=== PATIENT | female | born 1940 | race Caucasian/White ===

== ENCOUNTER 2016-09-30 13:50 | Inpatient (IN) | payer OTHER ==
--- NOTE | 2016-09-30 14:16 | CPEKG ---
Heart Rate: 66 RR Interval: 909 P-R Interval: 175 QRSD Interval: 82 QT Interval: 392 QTC Interval: 411 P [place]: -25 QRS [place]: 33 T Wave [place]: 21 EKG Severity - ABNORMAL ECG - EKG Impression: SINUS RHYTHM EKG Impression: ANTERIOR INFARCT, OLD Electronically Signed By: Kiran Reeder 30-Sep-2016 14:58:52
[2016-09-30 14:37] LABS: % IMMATURE GRANULYOCYTES 0.3 % (0.0-1.1); ABSOLUTE IMMATURE GRANULOCYTES 0.02 10^3/uL (0.00-0.10); ADD DIFF? NO; ADD MORPH? NO; ADD SCAN? NO; ATYPICAL LYMPHOCYTE FLAG 0 (0-99); FRAGMENT RBC FLAG 0 (0-99); HEMATOCRIT 38.9 % (38.0-47.0); HEMOGLOBIN 13.3 g/dL (12.6-16.3); LEFT SHIFT FLG 0 (0-99); LIPEMIA HEMOLYSIS FLAG 90 (0-99); MEAN CELL HEMOGLOBIN 32.7 pg (27.9-34.1); MEAN CELL HEMOGLOBIN CONCENTR. 34.2 g/dL (32.4-36.7); MEAN CELL VOLUME 95.6 fL (81.5-99.8); MEAN PLATELET VOLUME 10.4 fL (8.7-11.7); PLATELET CLUMPS FLAG 0 (0-99); PLATELET COUNT 261 10^3/uL (150-400); RED BLOOD CELL COUNT 4.07 10^6/uL (4.18-5.33); RED CELL DISTRIBUTION WIDTH 13.5 % (11.5-15.2)
[2016-09-30 14:44] LABS: ALANINE AMINOTRANSFERASE 34 IU/L (9-52); ALBUMIN 3.9 g/dL (3.5-5.0); ALKALINE PHOSPHATASE 79 IU/L (38-126); ANION GAP 13 mEq/L (8-16); ASPARTATE AMINOTRANSFERASE 24 IU/L (14-46); BILIRUBIN,TOTAL 0.4 mg/dL (0.1-1.4); CALCIUM 9.1 mg/dL (8.5-10.4); CARBON DIOXIDE 22 mEq/l (22-31); CHLORIDE 104 mEq/L (97-110); CREATININE 0.8 mg/dL (0.6-1.0); GLOMERULAR FILTRATION RATE > 60; GLUCOSE 86 mg/dL (70-100); POTASSIUM 4.2 mEq/L (3.5-5.2); SODIUM 139 mEq/L (134-144); TOTAL PROTEIN 7.1 g/dL (6.3-8.2)
--- NOTE | 2016-09-30 14:52 | EDPHY ---
H & P Chief Complaint Nursing Narrative: intermittent chest discomfort described as " indigestion" with l shoulder pain that radiates to neck and sob x 1 week Time Seen by Provider: 09/30/16 14:09 HPI/ROS: Chief Complaint: Chest pain HPI: 76-year-old woman with past medical history of coronary artery disease, CVA and TIA is presenting complaining of "indigestion" for the last week and a half. Patient states she has been having daily discomfort in her chest which is radiating to her left arm and to her left neck. She states this does come and go and goes away with " a large amount" of antacids. It does feel somewhat similar to when she had her prior AL. Has not discussed this with her knitter hand, Dr. Tijerina, or her primary care physician, Dr. Lulu Rincon. It is waxing waning. At worst it is a 4/10. If your Urgent Care today it is 0/10. She has had some nausea with no vomiting. No numbness or weakness. Has had some dyspnea on exertion. ROS: 10 point Review of Systems is negative except as noted in the HPI. PMH: Coronary artery disease status post CABG, CVA x1, TIA x1, breast cancer status post lumpectomy, lymphoma Medications: Carvedilol, digoxin, Lipitor, omeprazole, aspirin, Wellbutrin, ramipril, Klonopin Allergies: Sulfa Social History: No smoking, no alcohol, no recreational drug use Family History: non-contributory Physical Exam: Gen: Awake, Alert, No Distress HEENT: Nose: no rhinorrhea Eyes: PERRLA, EOMI Mouth: Moist mucosa Neck: Supple, no JVD Chest: nontender, lungs clear to auscultation Heart: S1, S2 normal, no murmur Abd: Soft, non-tender, no guarding Back: no CVA tenderness, no midline tenderness Ext: no edema, non-tender Skin: no rash Neuro: CN II-XII intact, Sensation grossly intact, Strength 5/5 in bilateral upper and lower extremities - Personal History Tetanus Vaccine Date: < 10 - Medical/Surgical History Hx Asthma: No Hx Chronic Respiratory Disease: No Hx Diabetes: No Hx Cardiac Disease: Yes Hx Renal Disease: No Hx Cirrhosis: No Hx Alcoholism: No Hx HIV/AIDS: No Hx Splenectomy or Spleen Trauma: No Other PMH: cardiac issues - Social History Smoking Status: Never smoked Constitutional: Initial Vital Signs Temperature (C) 37.1 C 09/30/16 14:10 Heart Rate 70 09/30/16 14:10 Respiratory Rate 18 09/30/16 14:10 Blood Pressure 145/83 H 09/30/16 14:10 O2 Sat (%) 92 09/30/16 14:10 O2 Delivery Mode Room Air Allergies/Adverse Reactions: Sulfa (Sulfonamide Antibiotics) Allergy (Intermediate, Verified 11/29/13 12:10) Home Medications: Medication Instructions Recorded Aspirin [Aspirin 81mg (OTC)] 81 mg PO DAILY 10/16/11 Carvedilol [Coreg (RX)] 3.125 mg PO BIDMEAL 10/16/11 Ramipril [Altace 2.5mg (RX)] 2.5 mg PO HS 10/16/11 clonazePAM [Klonopin (RX)] 0.5 mg PO HS 10/16/11 Atorvastatin Calcium [Lipitor 40 40 mg PO DAILY 05/14/13 mg (RX)] Bupropion HCl [Budeprion Sr] 300 mg PO HS 05/14/13 Digoxin [Lanoxin] 0.125 mg PO DAILY 05/14/13 Melatonin [Melatonin 3 MG (OTC)] 3 mg PO HS 05/14/13 Omeprazole [Prilosec 20 mg] 20 mg PO DAILY PRN 05/14/13 Medical Decision Making - Diagnostics EKG Interpretation: ECG: Time 2:14 p.m., sinus rhythm with a rate of 66, normal axis, Q-waves in V1 through V3 consistent with an old anterior infarct, no acute ST or T-wave changes. Impression: Old infarct, no acute Imaging: Chest x-ray: Negative per Dr. Dexter. ED Course/Re-evaluation: 76-year-old with multiple risk factors for coronary disease with a history of CABG in the past. Patient has no acute changes on ECG today troponin is 0. However given her significant risk factors in inability to recognize the possibility of this as cardiac she will require admit hospital admission for further evaluation. I have discussed with Dr. Cormier, hospitalist. She will except the patient to the PCU for further evaluation. - Data Points Laboratory Results: Laboratory Results 09/30/16 14:30 09/30/16 14:30 09/30/16 09/30/16 14:30 14:30 WBC 6.73 10^3/uL 10^3/uL (3.80-9.50) RBC 4.07 10^6/uL L 10^6/uL (4.18-5.33) Hgb 13.3 g/dL g/dL (12.6-16.3) Hct 38.9 % % (38.0-47.0) MCV 95.6 fL fL (81.5-99.8) MCH 32.7 pg pg (27.9-34.1) MCHC 34.2 g/dL g/dL (32.4-36.7) RDW 13.5 % % (11.5-15.2) Plt Count 261 10^3/uL 10^3/uL (150-400) MPV 10.4 fL fL (8.7-11.7) Neut % (Auto) 60.3 % % (39.3-74.2) Lymph % (Auto) 24.4 % % (15.0-45.0) [place] % (Auto) 12.2 % % (4.5-13.0) Eos % (Auto) 2.4 % % (0.6-7.6) Baso % (Auto) 0.4 % % (0.3-1.7) Nucleat RBC Rel Count 0.0 % % (0.0-0.2) Absolute Neuts (auto) 4.06 10^3/uL 10^3/uL (1.70-6.50) Absolute Lymphs (auto) 1.64 10^3/uL 10^3/uL (1.00-3.00) Absolute Monos (auto) 0.82 10^3/uL H 10^3/uL (0.30-0.80) Absolute Eos (auto) 0.16 10^3/uL 10^3/uL (0.03-0.40) Absolute Basos (auto) 0.03 10^3/uL 10^3/uL (0.02-0.10) Absolute Nucleated RBC 0.00 10^3/uL 10^3/uL (0-0.01) Immature Gran % 0.3 % % (0.0-1.1) Immature Gran # 0.02 10^3/uL 10^3/uL (0.00-0.10) Sodium 139 mEq/L mEq/L (134-144) Potassium 4.2 mEq/L mEq/L (3.5-5.2) Chloride 104 mEq/L mEq/L (97-110) Carbon Dioxide 22 mEq/l mEq/l (22-31) Anion Gap 13 mEq/L mEq/L (8-16) BUN 13 mg/dL mg/dL (7-23) Creatinine 0.8 mg/dL mg/dL (0.6-1.0) Estimated GFR > 60 Glucose 86 mg/dL mg/dL (70-100) Calcium 9.1 mg/dL mg/dL (8.5-10.4) Total Bilirubin 0.4 mg/dL mg/dL (0.1-1.4) AST 24 IU/L IU/L (14-46) ALT 34 IU/L IU/L (9-52) Alkaline Phosphatase 79 IU/L IU/L (38-126) Troponin I < 0.012 ng/mL ng/mL (0-0.034) Total Protein 7.1 g/dL g/dL (6.3-8.2) Albumin 3.9 g/dL g/dL (3.5-5.0) Departure - Departure Disposition: [facility] Inpatient Acute Clinical Impression: Chest pain Condition: Fair Referrals: Lulu Henning MD [Primary Care Provider] - As per Instructions
[2016-09-30 14:59] LABS: TROPONIN I < 0.012 ng/mL (0-0.034)
[2016-09-30] MEDS ORDERED: ONDANSETRON DISINTEGRATING 4 MG TAB PO PRN (18:04)
[2016-09-30] MEDS ORDERED: ACETAMINOPHEN 325 MG TAB PO PRN (18:04)
[2016-09-30] MEDS ORDERED: ONDANSETRON 4 MG/2 ML VIAL IVP PRN (18:04)
[2016-09-30] MEDS ORDERED: HEPARIN 5,000 UNIT/0.5 ML SYR SC ONE (19:00)
[2016-09-30] MEDS: clonazePAM 0.5 MG TAB PO SCH (21:32)
[2016-09-30] MEDS: MELATONIN 3 MG TAB PO SCH (21:32)
[2016-09-30] MEDS: CARVEDILOL 6.25 MG TAB PO SCH (21:33)
[2016-09-30] MEDS: ASPIRIN EC 81 MG TAB PO SCH (21:34)
[2016-09-30] MEDS: ATORVASTATIN CALCIUM 40 MG TAB PO SCH (21:34)
[2016-09-30] MEDS: RAMIPRIL 2.5 MG CAP PO SCH (21:34)
[2016-10-01] MEDS: NITROGLYCERIN 2% 1 GM PACKET TP SCH ×5 (02:40→23:45)
[2016-10-01] MEDS: ENOXAPARIN 40 MG/0.4 ML SYR SC SCH (08:38)
[2016-10-01] MEDS: MULTIVITAMINS 1 EACH TAB PO SCH (08:39)
[2016-10-01] MEDS: ESCITALOPRAM OXALATE 10 MG TAB PO SCH (08:40)
[2016-10-01] MEDS: ASPIRIN EC 81 MG TAB PO SCH (08:40)
[2016-10-01] MEDS: ATORVASTATIN CALCIUM 40 MG TAB PO SCH (08:40)
[2016-10-01] MEDS ORDERED: PANTOPRAZOLE SODIUM 40 MG TAB PO PRN (09:00)
[2016-10-01] MEDS ORDERED: DIGOXIN 125 MCG TAB PO SCH (09:00)
--- NOTE | 2016-10-01 09:00 | CPEKG ---
Heart Rate: 66 RR Interval: 909 P-R Interval: 212 QRSD Interval: 84 QT Interval: 408 QTC Interval: 428 P [place]: 65 QRS [place]: 62 T Wave [place]: 55 EKG Severity - ABNORMAL ECG - EKG Impression: SINUS RHYTHM EKG Impression: CONSIDER ANTEROSEPTAL INFARCT EKG Impression: No significant change from September 30, 2016 Electronically Signed By: Marco Johnson 01-Oct-2016 12:54:04
[2016-10-01] MEDS ORDERED: ACETAMINOPHEN 325 MG TAB PO PRN (09:33)
[2016-10-01] MEDS ORDERED: ASPIRIN EC 325 MG TAB PO ONE (09:33)
[2016-10-01] MEDS ORDERED: NITROGLYCERIN 0.4 MG BTL SL PRN (09:33)
[2016-10-01] MEDS ORDERED: TEMAZEPAM 15 MG CAP PO PRN (09:33)
[2016-10-01] MEDS ORDERED: diphenhydrAMINE 25 MG CAP PO ONE (09:33)
[2016-10-01] MEDS ORDERED: DIAZEPAM 5 MG TAB PO ONE (09:33)
--- NOTE | 2016-10-01 09:51 | GCON ---
[f rep st] CONSULTATION CARDIOLOGY CONSULTATION DATE OF CONSULTATION: 10/01/2016 CHIEF COMPLAINT: Intermittent chest and shoulder pain. HISTORY OF PRESENT ILLNESS: This is a very pleasant 76-year-old female who is followed by Dr. Justo blackmon in our office. Her cardiac history dates back to 1993 when she had a cardiac arrest and underwent apparently 2-vessel coronary bypass grafting by Dr. Jonathan Beck. She was being seen by a cardio logist in [place]. Apparently had a "normal exercise stress test within the last year." For the las t 2 weeks, however, she has been having increasing indigestion, which radiates to her neck and left shoulder pain. Her initial presentation of coronary artery disease was thought to be neck and shoul brad pain as well. She is active. She is under quite a bit of stress at her house. She has been ta maria t antacids with some relief. She denies any active GI blood loss. She was admitted last night a nd has had EKGs, which were nondiagnostic, and normal troponins. She is pain-free and doing well th is morning. I had a long talk with her and her about her options of cardiac catheterization versus nuclear stress testing. We went through the pros and cons. At this point, she has agreed t o cardiac catheterization. She had no prior issues with her cardiac catheterization, such as allerg ies or other issues. She does understand that this will be the test that will give us the most defi nitive information, and if need be, stenting can be done at the same time. She is comfortable and a greeable to that. PAST MEDICAL HISTORY: Coronary artery disease, history of TIAs, status post breast cancer and lumpe ctomy. MEDICATIONS: Include carvedilol, digoxin, Lipitor, omeprazole, aspirin, Wellbutrin, ramipril, and K lonopin. ALLERGIES: Sulfa. SOCIAL HISTORY: No alcohol, no cigarettes. She does have quite a bit of stress with caring for a f josé luis child. EXAM: VITAL SIGNS: Blood pressure is 100/70, with a heart rate of 70. GENERAL: She is a middle-ag ed, elderly female who is comfortable lying in bed. MOUTH: Oropharynx was moist. BACK, CV, CHEST: All without palpable tenderness. LUNGS: Clear to auscultation. CARDIOVASCULAR: Regular rate an d rhythm, without murmurs, gallops, or rub. ABDOMEN: Soft, nontender. Normoactive bowel sounds. MUSCULOSKELETAL: Without cyanosis, clubbing, or edema. LABS: Potassium 4.2, creatinine 0.8. Troponin is normal. White count 6.7, hemoglobin 13. EKG josy ws a normal sinus rhythm, without acute ST-T wave changes. ASSESSMENT: 1. Two-week history of increasing chest discomfort with radiation to the neck and jaw. This very w ell could be GI; however, she has significant cardiac history in the past, including cardiac arrest. She may have had a normal treadmill within the last year, but these symptoms are new. She is hemo dynamically stable, with negative EKG and enzymes and a normal exam today. She has agreed to cardia c catheterization intervention if necessary. This will be done this morning. Hopefully, if this sh ows no issues, she could be discharged later today for GI outpatient followup. If she needs a stent , she has agreed to this. Her , who is in the exam room, was spoken to as well, and he agree s. In reviewing her meds, she has been on digitalis for quite some time of unknown reasons, and I m ay very well stop that drug as well. 2. Gastroesophageal reflux disease. No active gastrointestinal bleeding. 3. Life stressors. Could be a contributing factor. Case discussed with Dr. Mooney. /[id number]/MODL
[2016-10-01] MEDS ORDERED: LIDOCAINE 1% 30 ML SDV ONE (10:45)
[2016-10-01] MEDS ORDERED: fentaNYL 100 MCG/2 ML INJ ONE (10:45)
[2016-10-01] MEDS ORDERED: MIDAZOLAM 2 MG/2 ML VIAL ONE (10:45)
[2016-10-01] MEDS ORDERED: CLOPIDOGREL BISULFATE 75 MG TAB ONE (12:10)
[2016-10-01] MEDS ORDERED: ONDANSETRON 4 MG/2 ML VIAL IVP PRN (12:28)
[2016-10-01] MEDS ORDERED: CLOPIDOGREL BISULFATE 75 MG TAB PO ONE (12:28)
[2016-10-01] MEDS ORDERED: ATROPINE SULFATE 1 MG/10 ML SYR IVP PRN (12:28)
--- NOTE | 2016-10-01 12:32 | PDCTREPORT ---
Cardiothoracic Procedure Rpt Cardiothoracic Procedure Report: Procedure: PCI stenting of the obtuse marginal branch. After reviewing diagnostic angiograms by my partner Dr. Jose M Simms it was elected to proceed with PCI stenting of the obtuse marginal branch. Patient was anticoagulated. Therapeutic ACT was confirmed. A 6 [place] EBU 3.75 guiding catheter was used to intubate the left main coronary artery. A 0.014 cm SAmurai wire was used to cross the obtuse marginal stenosis. It was primarily stented with a 2.25 x 12 mm synergy stent. Repeat angiogram showed RUPALI grade 3 flow. Successful PCI and stenting of the obtuse marginal branch. Patient Problems: Problems Problem Status Onset TIA (transient ischemic attack) Acute Chest pain Acute
--- NOTE | 2016-10-01 13:50 | CPEKG ---
Heart Rate: 63 RR Interval: 952 P-R Interval: 248 QRSD Interval: 82 QT Interval: 404 QTC Interval: 414 P [place]: 87 QRS [place]: 55 T Wave [place]: 25 EKG Severity - ABNORMAL ECG - EKG Impression: SINUS RHYTHM EKG Impression: FIRST DEGREE AV BLOCK EKG Impression: LOW VOLTAGE THROUGHOUT EKG Impression: CONSIDER ANTEROSEPTAL INFARCT EKG Impression: No significant change from October 01, 2016, 8:59 Electronically Signed By: Marco Johnson 01-Oct-2016 16:42:24
--- NOTE | 2016-10-01 16:17 | PDGENHP ---
History and Physical History and Physical: HISTORY AND PHYSICAL CC: Chest pain HISTORY: This patient with a history of bypass surgery in 1993 comes in complaining of anginal symptoms. She states that over the last 10 days she has had frequent episodes of a squeezing discomfort in the substernal area radiating up to the left neck and shoulder. She describes this as an indigestion. This is the same location and quality of pain that she recalls from 1993 and it sounds very much like description of her symptoms in her chart from that time. She does not notice that exertion eating position or anything else in particular is bringing on these episodes. The episodes are lasting 5-10 minutes and occurring at least once a day. There is some nausea and mild dyspnea that goes with that. Otherwise she does not have any new exertional dyspnea, orthopnea, palpitations, fever. She does notice that her calfs are both a bit sore. She is taking her cholesterol treatment, she does not smoke, she has not traveled. She is quite sedentary though. 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 Apparently she has an adopted 14-year-old son who has run from home and apparently is making some kind of suicidal threats recently MEDICATIONS: The patient's home medication list has been reconciled by our clinical pharmacist in the EMR. I have reviewed the list and ordered appropriate medicines. PHYSICAL EXAMINATION: Vital Signs: Stable without fever Allergist/Immunologist:Sinus Examination: General: alert, oriented, good mentation, relaxed Skin: warm, dry, good color, no rash HEENT: normal Neck: no mass or jvd Resps: relaxed Lungs: clear breath sounds Heart: regular, no murmur Abdomen: soft, nondistended, nontender, +BS, no mass Upper Extremities: normal Lower Extremities: no edema, warm No Bleeding or bruising Neurologic: normal speech/language, normal ampoule filler and sealer, no focal weakness IV site: looks normal LABORATORY DATA: 1st troponin normal otherwise unremarkable 12 LEAD EKG, MY PERSONAL READING OF THE TRACING: Sinus rhythm with no acute ischemic abnormalities RADIOLOGY STUDIES: My personal interpretation: Status post mastectomy right otherwise unremarkable ASSESSMENT: -UNSTABLE ANGINA PECTORALIS IN A PATIENT WITH BYPASS SURGERY AND CARDIAC ARREST IN 1993, HISTORY OF RADIATION FOR BREAST CANCER -BILATERAL CALF DISCOMFORT WITH UNREMARKABLE EXAMINATION PLANS: -admit to clinical research monitor unit, NPO after midnight -continue her usual medicines -will give some nitroglycerin overnight to keep things quiet -coronary angiography in the morning -Will hold her digoxin at this point as there does not appear to be any reason for her to be taking that, and Dr. Oswald is recommending that we discontinue that as she goes home -Doppler ultrasound of both legs I have reviewed the patient's case in detail with Dr. amrit Oswald and Jose M Simms I have reviewed the patient's past medical records as part of this assessment, including previous hospital records from this hospital and clinic records
--- NOTE | 2016-10-01 16:22 | HOSPPROG ---
Hospitalist Progress Note Assessment/Plan: DIAGNOSES: -unstable angina pectoralis -coronary artery stenosis at obtuse marginal branch, now SPECT status post stent which is her 1st stent -history of bypass surgery 1993, had presented with chest pain and cardiac arrest at that time -no evidence of DVT on sono PLANS: -monitor overnight for stability; therefore will need to change to inpt -Plavix will be added -anticipate likely discharge tomorrow SUBJECTIVE: Seen after angiography and stent placement Feels well with no pain at access site, no angina, no shortness of breath or nausea OBJECTIVE Vitals reviewed: stable without fever Box Toe Maker, my review: sinus rhythm Exam: alert oriented skin warm dry color ok resps not labored lungs clear BSs heart regular abd soft nondistended nontender, bowel sounds present limbs warm, no edema iv site ok Objective: Vital Signs Temp Pulse Resp BP Pulse Ox 37.0 C 68 13 158/97 H 94 10/01/16 15:49 10/01/16 15:49 10/01/16 15:49 10/01/16 15:49 10/01/16 15:49 09/30/16 10/01/16 10/02/16 06:59 06:59 06:59 Intake Total 300 Balance 300 ICD10 Worksheet Patient Problems: Problems Problem Status Onset Chest pain Acute TIA (transient ischemic attack) Acute
[2016-10-01] MEDS ORDERED: amLODIPine BESYLATE 5 MG TAB PO PRN (17:13)
[2016-10-01] MEDS: RAMIPRIL 2.5 MG CAP PO SCH (20:25)
[2016-10-01] MEDS: MELATONIN 3 MG TAB PO SCH (20:25)
[2016-10-01] MEDS: clonazePAM 0.5 MG TAB PO SCH (20:25)
[2016-10-02 03:51] VITALS: RESP 16
[2016-10-02 05:03] LABS: % IMMATURE GRANULYOCYTES 0.4 % (0.0-1.1); ABSOLUTE IMMATURE GRANULOCYTES 0.04 10^3/uL (0.00-0.10); ADD DIFF? NO; ADD MORPH? NO; ADD SCAN? NO; ATYPICAL LYMPHOCYTE FLAG 0 (0-99); FRAGMENT RBC FLAG 0 (0-99); HEMATOCRIT 36.6 % (38.0-47.0); HEMOGLOBIN 12.4 g/dL (12.6-16.3); LEFT SHIFT FLG 0 (0-99); LIPEMIA HEMOLYSIS FLAG 90 (0-99); MEAN CELL HEMOGLOBIN 32.5 pg (27.9-34.1); MEAN CELL HEMOGLOBIN CONCENTR. 33.9 g/dL (32.4-36.7); MEAN CELL VOLUME 96.1 fL (81.5-99.8); MEAN PLATELET VOLUME 10.6 fL (8.7-11.7); PLATELET CLUMPS FLAG 0 (0-99); PLATELET COUNT 219 10^3/uL (150-400); RED BLOOD CELL COUNT 3.81 10^6/uL (4.18-5.33); RED CELL DISTRIBUTION WIDTH 13.2 % (11.5-15.2)
[2016-10-02] MEDS: NITROGLYCERIN 2% 1 GM PACKET TP SCH (05:16)
[2016-10-02 05:33] LABS: ANION GAP 11 mEq/L (8-16); ASPARTATE AMINOTRANSFERASE 24 IU/L (14-46); BILIRUBIN,TOTAL 0.7 mg/dL (0.1-1.4); CARBON DIOXIDE 20 mEq/l (22-31); CHLORIDE 106 mEq/L (97-110); CREATININE 0.8 mg/dL (0.6-1.0); GLOMERULAR FILTRATION RATE > 60; GLUCOSE 105 mg/dL (70-100); LACTATE DEHYDROGENASE 477 IU/L (313-618); MAGNESIUM 2.1 mg/dL (1.6-2.3); POTASSIUM 4.3 mEq/L (3.5-5.2); SODIUM 137 mEq/L (134-144)
[2016-10-02 07:11] VITALS: BP 120/71; PULSE 71; TEMP 95.9; O2SAT 95
--- NOTE | 2016-10-02 07:56 | CPEKG ---
Heart Rate: 71 RR Interval: 845 P-R Interval: 196 QRSD Interval: 90 QT Interval: 428 QTC Interval: 466 P [place]: 34 QRS [place]: 47 T Wave [place]: 29 EKG Severity - ABNORMAL ECG - EKG Impression: SINUS RHYTHM EKG Impression: ATRIAL PREMATURE COMPLEX EKG Impression: CONSIDER ANTEROSEPTAL INFARCT EKG Impression: AGREE WITH ABOVE. NO SIGNIFICANT CHANGE SINCE OCTOBER 01, 2016 Electronically Signed By: Marco Johnson 02-Oct-2016 08:29:51
[2016-10-02] MEDS ORDERED: CARVEDILOL 6.25 MG TAB PO SCH (08:51)
[2016-10-02] MEDS ORDERED: ASPIRIN EC 325 MG TAB PO SCH (09:00)
[2016-10-02] MEDS ORDERED: CLOPIDOGREL BISULFATE 75 MG TAB PO SCH (09:00)
[2016-10-02] MEDS: ESCITALOPRAM OXALATE 10 MG TAB PO SCH (09:32)
[2016-10-02] MEDS: MULTIVITAMINS 1 EACH TAB PO SCH (09:32)
[2016-10-02] MEDS: ATORVASTATIN CALCIUM 40 MG TAB PO SCH (09:32)
[2016-10-02] MEDS: ENOXAPARIN 40 MG/0.4 ML SYR SC SCH (09:32)
--- NOTE | 2016-10-02 11:25 | GDS ---
[f rep st] DISCHARGE SUMMARY DISCHARGE DIAGNOSES: 1. New onset chest pain, concerning for acute coronary syndrome, status post left heart catheterization and PTCA and stenting to principal OM. 2. History of coronary artery disease with CABG in 1993, preceded by cardiac arrest. 3. Paroxysmal atrial flutter seen on this admission. 4. History of hypertension. 5. History of dyslipidemia. 6. History of anxiety and depression. PROCEDURES: On 10/01/2016, left heart catheterization with percutaneous intervention to obtuse marginal stenosis with a 2.25 x 12 mm Synergy stent. BRIEF HISTORY: Please see dictated H and P for complete details. In brief, the patient is a 76-year-old female with dyslipidemia, hypertension, CAD with CABG in 1993, who presented with 2 weeks of worsening indigestion symptoms which radiated into her neck and left shoulder. She had been taking some antacids with some relief. However, her home situation became more and more stressful due to problems with an adopted child. She had a bout of symptoms that were not relieved, and therefore she presented to the emergency department for further evaluation. She was found to have negative troponins and an unchanged ECG. Options were reviewed and patient agreed to cardiac catheterization for further evaluation. She was found to have a severe blockage in an obtuse marginal vessel. This was treated with PTCA and stenting. On day of discharge, patient denies any further episodes of chest pain. On telemetry monitoring, she was found to have some short bouts of what appears to be atrial flutter versus SVT. HOSPITAL COURSE: 1. Chest pain. She had escalating symptoms concerning for ACS. She has proceeded to PCI at this time. 2. Atrial flutter versus SVT. We will plan for a 1-week monitor to evaluate this further. She will follow up with Dr. Tijerina in 1 month's time. 3. Dyslipidemia. Her home atorvastatin has been continued. 4. Hypertension. Blood pressures have been moderately elevated in this admission. Her home carvedilol has been increased. RESULTS PENDING: None. DIET: Cardiac. ACTIVITY: Groin precautions were reviewed. DISCHARGE MEDICATIONS: Please see medication reconciliation for complete details. She is being discharged on all her home medications, which include multivitamin, Klonopin, Lexapro, ramipril, omeprazole, melatonin, and atorvastatin. She has been started on clopidogrel 75 mg p.o. daily. Aspirin dose will be unchanged at 81 mg p.o. daily. Her carvedilol dose was increased to 12.5 mg p.o. b.i.d. DISCHARGE INSTRUCTIONS: 1. Groin precautions. 2. Follow up with Dr. Tijerina as scheduled. Please note that greter than 30 minutes was spent on discharge and coordination of care. /[id number]/MODL MTDD
== END 2016-10-02 10:32 | disposition home or self-care (01) | DRG 247 ==
LOC: CED 13:50 → CEDHOLD 15:08 → OBSVTOIN 15:08 → F2W 17:19
PROVIDERS: ADMIT Hospitalist; ATTEND Internal Medicine
PROC: 027034Z Dilation of Coronary Artery, One Artery with Drug-eluting Intraluminal Device, Percutaneous Approach (ICD-10-PCS; principal; 2016-10-01)
DX: I25.790 Atherosclerosis of other coronary artery bypass graft(s) with unstable angina pectoris (principal); I48.92 Unspecified atrial flutter; I48.0 Paroxysmal atrial fibrillation; I10 Essential (primary) hypertension; E78.5 Hyperlipidemia, unspecified; F41.8 Other specified anxiety disorders; I25.2 Old myocardial infarction; Z85.3 Personal history of malignant neoplasm of breast; K21.9 Gastro-esophageal reflux disease without esophagitis; Z86.73 Personal history of transient ischemic attack (TIA), and cerebral infarction without residual deficits
CPT/HCPCS: 71020-PO; 80053-PO; 84484-PO; 85025-PO; C1725; C1760; C1769; C1874; C1887; C9600; G0463-PO; J1644; J1650; J2250; J3010

== ENCOUNTER → 2016-10-15 | Outpatient (CLI) | payer OTHER ==
[~2016-10-15] MED LIST: ACETAMINOPHEN 325 MG TAB PO PRN; BIVALIRUDIN 250 MG/5 ML VIAL IV ONE; CARVEDILOL 6.25 MG TAB ONE; CLOPIDOGREL BISULFATE 75 MG TAB ONE; ENOXAPARIN 40 MG/0.4 ML SYR SC SCH; IOPAMIDOL (ISOVUE 370) 100 ML BTL IV ONE; NALOXONE HCL 0.4 MG/ML INJ ONE; NITROGLYCERIN 1,500 MCG/15 ML VIAL MISC ONE; ONDANSETRON 4 MG/2 ML VIAL IVP PRN; ONDANSETRON DISINTEGRATING 4 MG TAB PO PRN
== END ==
LOC: FIMAGING 10:03
PROVIDERS: ATTEND Internal Medicine
DX: Z13.820 Encounter for screening for osteoporosis (principal); M85.80 Other specified disorders of bone density and structure, unspecified site; Z78.0 Asymptomatic menopausal state
CPT/HCPCS: 77080; J0583; J2310; Q9967

== ENCOUNTER → 2016-11-19 | Outpatient (CLI) | payer OTHER | LOC: CIMAGING 14:08 | PROVIDERS: ATTEND Internal Medicine | DX: R05 Cough (principal) | CPT/HCPCS: 71020-PO ==

== ENCOUNTER 2017-01-03 11:11 | Emergency (ER) | payer OTHER ==
[2017-01-03 11:29] VITALS: BP 123/78; PULSE 104; RESP 16; TEMP 98.1; O2SAT 95
--- NOTE | 2017-01-03 12:10 | EDPHY ---
H & P Time Seen by Provider: 01/03/17 11:26 HPI/ROS: This patient complains of left foot injury from a fall at home on December 28, 6 days prior to this visit. This is her 1st visit see a physician. She explains that she stepped over a foot half tall vertically placed board in her home that these as a child area from 1 room to another and she tripped and fell on the patio. She does recall the exact way that she landed but she had immediate lateral foot paint and left lateral hip pain. She states that since that time the foot pain has remained moderate 5/10 worse with walking and she has persistent ecchymosis and swelling to the affected foot. The pain is not improving. Similarly, she reports moderate left hip pain at times is more severe and is currently 3/10. She is still able to bear full weight on the affected lower extremity. She denies any other injuries. ROS: Constitutional: No complaints Neuro: No numbness or tingling. No bowel or bladder incontinence Musculoskeletal: No midline back pain. She does complain of mild bilateral hip pain since the fall but is much more prominent on the left side. No neck injury. HEENT: No head injury from the fall. Integumentary: No lacerations. She does have bruising to the foot. 5 point ROS is otherwise negative Past Medical/Surgical History: Review-noncontributory Smoking Status: Never smoked Physical Exam: Physical Exam Vital signs are normal. General: No acute distress HEENT: Atraumatic. Neck: Nontender Eyes: Pupils equal and react to light. Extraocular motions are intact. Lungs: No respiratory distress. Back: No midline tenderness. No tenderness the sciatic notch Cardiac: Brisk capillary refill is intact throughout. Pulses are 2+ and symmetric in the affected extremity. Pelvis: No tenderness with patient's by position with pressure on the anterior superior iliac crest sore on the pubic symphysis Left hip: Mild to moderate lateral tenderness at the greater trochanter. There is no foreshortening leg or malrotation. She can't bear full weight on the affected extremity. Right hip is nontender Left foot: Patient has ecchymosis swelling and tenderness to the dorsum of her forefoot laterally. This extends the toes but there is no toe tenderness. No ankle swelling or tenderness. All other extremities atraumatic Skin: No rash or pallor. Neuro: Alert and oriented x3 with no sensorimotor deficits in the affected extremity Initial differential diagnosis: Foot fracture, foot sprain, hip contusion, hip fracture Constitutional: Initial Vital Signs Temperature (C) 36.7 C 01/03/17 11:24 Heart Rate 104 H 01/03/17 11:24 Respiratory Rate 16 01/03/17 11:24 Blood Pressure 123/78 H 01/03/17 11:24 O2 Sat (%) 95 01/03/17 11:24 O2 Delivery Mode Room Air Allergies/Adverse Reactions: Sulfa (Sulfonamide Antibiotics) Allergy (Intermediate, Verified 01/03/17 11:23) Home Medications: Medication Instructions Recorded Ramipril [Altace 2.5mg (*)] 2.5 mg PO HS 10/16/11 clonazePAM [Klonopin (*)] 0.5 mg PO HS 10/16/11 Atorvastatin Calcium [Lipitor 40 40 mg PO DAILY 05/14/13 mg (*)] Melatonin [Melatonin 3 MG (*)] 3 mg PO HS 05/14/13 Omeprazole [Prilosec 20 mg] 20 mg PO DAILY PRN 05/14/13 Aspirin EC [Aspirin EC 81 mg (*)] 81 mg PO DAILY 09/30/16 Escitalopram Oxalate [Lexapro 10 10 mg PO DAILY 09/30/16 MG] Multivitamins [Multivitamin (*)] 1 each PO DAILY 09/30/16 Carvedilol [Coreg (*)] 12.5 mg PO DAILY #60 tab 10/02/16 Clopidogrel Bisulfate [Plavix (*)] 75 mg PO DAILY #30 tab 10/02/16 Multivitamins [Multivitamin (*)] 1 each PO DAILY #0 tab 10/02/16 MDM/Departure - MDM Diagnostics: Foot x-ray: Mildly displaced distal 5th metatarsal fracture by my interpretation Hip x-ray: Negative for fracture by my interpretation Imaging Results: Imaging Impressions Foot X-Ray 01/03/17 11:37 Impression: Subacute, angulated and slightly shortened distal fifth metatarsal fracture. 2. Left Hip Technique: AP pelvis and frog-leg left hip. Clinical Indications: Pain, fall on 12/28/2016 Findings: No fracture. Thickness of the joint is normal, without sclerosis or significant osteophytes. The SI joints pubic symphysis and hip joints remain normally aligned. Pelvic ring is intact. There is bilateral lower SI joint sclerosis area and Impression: 1. Nothing acute or subacute identified. 2. Findings suggest prior sacroiliitis. Hip X-Ray 01/03/17 11:38 Impression: Subacute, angulated and slightly shortened distal fifth metatarsal fracture. 2. Left Hip Technique: AP pelvis and frog-leg left hip. Clinical Indications: Pain, fall on 12/28/2016 Findings: No fracture. Thickness of the joint is normal, without sclerosis or significant osteophytes. The SI joints pubic symphysis and hip joints remain normally aligned. Pelvic ring is intact. There is bilateral lower SI joint sclerosis area and Impression: 1. Nothing acute or subacute identified. 2. Findings suggest prior sacroiliitis. Imaging: I viewed and interpreted images myself ED Course/Re-evaluation: Patient is placed in a walker boot I counseled regarding her foot fracture. Regarding her hip, think that she has a greater trochanter contusion and this may be triggering a bit of bursitis as well. Clinically and radiographically on appreciate evidence of pelvic fracture. Clinically she does not have sciatica or radiculopathy. No other concerning findings. She will follow up with Podiatry for further evaluation of her foot fracture - Depart Disposition: Home, Routine, Self-Care Clinical Impression: Fracture of 5th metatarsal Qualifiers: Encounter type: initial encounter Fracture type: closed Fracture alignment: displaced Laterality: left Qualified Code(s): S92.352A - Displaced fracture of fifth metatarsal bone, left foot, initial encounter for closed fracture Contusion, hip Qualifiers: Encounter type: initial encounter Laterality: left Qualified Code(s): S70.02XA - Contusion of left hip, initial encounter Condition: Good Instructions: Foot Fracture in Adults (ED) Additional Instructions: Diagnoses: 1. 5th metatarsal foot fracture 2. Hip contusion Plan: Ibuprofen Tylenol for discomfort Walker boot whenever your up and about Call Dr. Arcos-clinical specialist medical device arrange follow-up appointment for further evaluation of your foot fracture. Return for any significant worsening despite the treatment plan Referrals: Lulu Henning MD [Primary Care Provider] - As per Instructions Angélica Arcos DPM [Doctor of Podiatric Medicine] - As per Instructions
== END 2017-01-03 12:13 | disposition home or self-care (01) ==
LOC: CED 11:11
DX: S92.352A Displaced fracture of fifth metatarsal bone, left foot, initial encounter for closed fracture (principal); S70.02XA Contusion of left hip, initial encounter; Z79.82 Long term (current) use of aspirin; W01.0XXA Fall on same level from slipping, tripping and stumbling without subsequent striking against object, initial encounter; Y92.009 Unspecified place in unspecified non-institutional (private) residence as the place of occurrence of the external cause
CPT/HCPCS: 73502; 73630; 99284; L4386

== ENCOUNTER → 2017-01-18 | Outpatient (CLI) | payer OTHER | LOC: CIMAGING 11:02 | PROVIDERS: ATTEND Internal Medicine | DX: M48.56XA Collapsed vertebra, not elsewhere classified, lumbar region, initial encounter for fracture (principal); M43.16 Spondylolisthesis, lumbar region; M89.38 Hypertrophy of bone, other site | CPT/HCPCS: 72100-PO ==

== ENCOUNTER → 2017-04-02 | Outpatient (CLI) | payer OTHER | LOC: FIMAGING 10:26 | PROVIDERS: ATTEND Internal Medicine | DX: M47.896 Other spondylosis, lumbar region (principal); M47.895 Other spondylosis, thoracolumbar region; M12.88 Other specific arthropathies, not elsewhere classified, other specified site; M43.16 Spondylolisthesis, lumbar region; M48.06 Spinal stenosis, lumbar region; M99.73 Connective tissue and disc stenosis of intervertebral foramina of lumbar region; Z98.890 Other specified postprocedural states ==

== ENCOUNTER 2018-05-02 09:34 | Emergency (ER) | payer OTHER ==
[2018-05-02] MEDS ORDERED: NS 500 ML IV ONE (10:06)
--- NOTE | 2018-05-02 10:18 | EDPHY ---
H & P Time Seen by Provider: 05/02/18 09:55 HPI/ROS: HPI Trip and fall. Facial pain, bilateral hand pain. 78-year-old female by private vehicle with her and granddaughter. This patient was getting her dog out of the car to go to [place] when she tripped and fell forward striking her face and bracing herself with both hands. She complains of facial pain as well as pain to both hands, wrists and elbows. She denies loss of consciousness. She has had no nausea, vomiting or confusion. She denies significant headache. She is on Plavix. No neck pain. No loss of sensation or weakness in her extremities. ROS: Constitutional: No fever, no chills. As above. Eyes: No discharge. No changes in vision. ENT: No sore throat. No nasal congestion or rhinorrhea. Bloody nose. Respiratory: No cough. No shortness of breath. Cardiac: No chest pain, no palpitations. Gastrointestinal: No abdominal pain, no vomiting, no diarrhea. Genitourinary: No hematuria. No dysuria or increased frequency with urination. Musculoskeletal: No back pain. No neck pain. As above. Skin: No rashes. Abrasion to lower lip. Neurological: No headache. No focal weakness or altered sensation. Past medical history: [place], CABG x2 in 89, breast cancer, lymphoma, CVA, TIA, cholecystectomy, appendectomy, anxiety. Social history: Here with her and grandson. Nonsmoker. No alcohol. Physical Exam: General Appearance: Alert, no distress. This patient is responding to questions appropriately and in full sentences. This patient appears well- hydrated and well-nourished. Head: Normocephalic atraumatic. Except for superficial abrasion over the anterior mid nose and nasal bridge. The nasal bones are intact. She has got some dried blood in both nares. Face: Facial bones are stable on palpation. Eyes: Pupils equal and round and reactive to light, no pallor or injection. No lid erythema or edema. ENT, Mouth: Mucous membranes moist. Poor dentition but dentition is intact. No malocclusion of the jaw. No tongue lacerations or abrasions. Pharynx is clear. Some clotted blood in bilateral nasal canals. No active hemorrhage. No septal hematoma. As noted above. She has a small mid inner lower lip contusion. No suturable laceration. Respiratory: There are no retractions, lungs are clear to auscultation with good air movement bilaterally. Chest wall is stable to AP and lateral palpation. Cardiovascular: Regular rate and rhythm. No murmur. Gastrointestinal: Abdomen is soft and nontender, no masses, bowel sounds normal. Neurological: Motor sensory function is intact. Cranial nerves are normal. Cerebellar function intact. Skin: Warm and dry, no rashes. No lacerations, abrasions. As above.. Musculoskeletal: Neck is supple and nontender. The trachea is midline. No midline cervical, thoracic, lumbar or sacral tenderness on palpation. No flank tenderness on palpation. Bilateral upper extremity exam: She has vague tenderness on palpation involving the index finger and 2nd metacarpal phalangeal joint of both hands. She also has vague tenderness on palpation of both elbows and both wrists. She has discomfort with flexion and extension of the bilateral wrists and elbows passively and actively. The upper extremities are neurovascularly intact. No bony deformity was noted on palpation. The skin is intact. Extremities are symmetrical, full range of motion except noted. All joints in the bilateral upper and bilateral lower extremities range without pain or impingement except noted. No tenderness on palpation of the long bones in the bilateral upper and bilateral lower extremities except noted. Psychiatric: No agitation. No depression. Database: EKG: EKG time is 10:02 a.m.; EKG shows a narrow complex normal sinus verses ectopic atrial rhythm with borderline 1st degree AV block rhythm with a ventricular rate of 61. QS waves noted in lead V1 and V2. The PA, QRS, QT intervals are within normal limits. There are no ST-T wave changes indicative of ischemic or injury pattern. No evidence of right heart strain. Interpreted by me. Imaging: CT head without contrast: Negative except for a possible subtle left-sided nasal bone fracture without displacement. Results were discussed with staff radiologist Dr. Reji Flores. Right elbow, wrist, hand x-ray series: Age-related changes only. No evidence of fracture, subluxation, dislocation. Interpreted by me. Left elbow, wrist, hand x-ray series: Age-related changes only. No evidence of fracture, subluxation, dislocation. Interpreted by me. I have also reviewed the radiologist reports on these films. Procedures: Emergency department course: Triage vital signs reviewed. The patient is hypotensive and bradycardic. She is afebrile. She is on Coreg. An IV was placed. She was placed on a cardiac care unit nurse. She was started on IV normal saline with 500 cc to be given over the next hour. EKG obtained and reviewed by myself. She will be sent for CT imaging of her head an x-ray imaging of her upper extremities. On my evaluation vital signs, blood pressure 116/57 with a heart rate of 80, narrow complex sinus rhythm on the monitor. 11:30 a.m., the patient is requesting more pain medication. She was given 0.5 mg of IV hydromorphone. 11:50 a.m., the patient was re-evaluated. Her pain is better controlled. Results of her CT scans, EKG and plain film x-rays discussed with her and her . She will be provided with a Velcro bilateral wrist splints. We will get her up and road test her shortly to assess her readiness for discharge. 12:50 p.m., the patient has been up and ambulatory with her baseline gait. She feels comfortable going home at this time. Her feels comfortable taking her home. She has been fitted with bilateral Velcro wrist splints. Follow-up and return to emergency department precautions have been reviewed with her. All of her questions were answered. The patient was discharged home in good condition with her who is driving. Differential Diagnosis: The differential diagnosis on this patient includes but is not limited to mechanical fall, nasal bridge fracture, upper extremity fracture. Cervical spine fracture subluxation dislocation, traumatic brain injury unlikely. This represents a partial list of diagnoses considered. These considerations are based on history, physical exam, past history, reassessment and diagnostic testing. Smoking Status: Never smoked Constitutional: Initial Vital Signs Temperature (C) 36.5 C 05/02/18 09:37 Heart Rate 52 L 05/02/18 09:37 Respiratory Rate 18 05/02/18 09:37 Blood Pressure 88/55 L 05/02/18 09:37 O2 Sat (%) 95 05/02/18 09:37 O2 Delivery Mode Room Air Allergies/Adverse Reactions: Sulfa (Sulfonamide Antibiotics) Allergy (Intermediate, Verified 01/03/17 11:23) Home Medications: Medication Instructions Recorded Ramipril [Altace 2.5mg (*)] 2.5 mg PO HS 10/16/11 clonazePAM [Klonopin (*)] 0.5 mg PO HS 10/16/11 Atorvastatin Calcium [Lipitor 40 40 mg PO DAILY 05/14/13 mg (*)] Melatonin [Melatonin 3 MG (*)] 3 mg PO HS 05/14/13 Omeprazole [Prilosec 20 mg] 20 mg PO DAILY PRN 05/14/13 Aspirin EC [Aspirin EC 81 mg (*)] 81 mg PO DAILY 09/30/16 Escitalopram Oxalate [Lexapro 10 10 mg PO DAILY 09/30/16 MG] Multivitamins [Multivitamin (*)] 1 each PO DAILY 09/30/16 Carvedilol [Coreg (*)] 12.5 mg PO DAILY #60 tab 10/02/16 Clopidogrel Bisulfate [Plavix (*)] 75 mg PO DAILY #30 tab 10/02/16 Multivitamins [Multivitamin (*)] 1 each PO DAILY #0 tab 10/02/16 Medical Decision Making - Diagnostics Imaging Results: Imaging Impressions Head CT 05/02/18 10:07 Impression: 1. Mild cerebral atrophy. 2. Moderate microvascular ischemic gliosis. 3. Cerebrovascular atherosclerosis. 4. No acute hemorrhage. 5. Nasal bone fracture. Findings and recommendations discussed with Emergency Department physician, Dr. Dariel Tellez at 1045 hours on May 02, 2018. Final report concurs with initial preliminary interpretation. Elbow X-Ray 05/02/18 10:08 Impression: 1. No acute osseous at about is seen right and left elbows. 2. Mild spurring along the lateral aspect of the elbow joint bilaterally. 3. Incidental focal cortical erosion along the lateral aspect of the distal lateral humeral epicondyles on the right. Elbow X-Ray 05/02/18 10:08 Impression: 1. No acute osseous at about is seen right and left elbows. 2. Mild spurring along the lateral aspect of the elbow joint bilaterally. 3. Incidental focal cortical erosion along the lateral aspect of the distal lateral humeral epicondyles on the right. Hand X-Ray 05/02/18 10:08 Impression: 1. No acute osseous findings. 2. Osteopenia. 3. 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 Hand X-Ray 05/02/18 10:08 Impression: 1. No acute osseous findings. 2. Osteopenia. 3. 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 Wrist X-Ray 05/02/18 10:08 Impression: No acute osseous findings. Wrist X-Ray 05/02/18 10:08 Impression: No acute osseous findings. - Data Points Laboratory Results: Laboratory Results 05/02/18 10:00 05/02/18 10:00 05/02/18 05/02/18 05/02/18 10:04 10:00 10:00 WBC RBC Hgb Hct MCV MCH MCHC RDW Plt Count MPV Neut % (Auto) Lymph % (Auto) [place] % (Auto) Eos % (Auto) Baso % (Auto) Nucleat RBC Rel Count Absolute Neuts (auto) Absolute Lymphs (auto) Absolute Monos (auto) Absolute Eos (auto) Absolute Basos (auto) Absolute Nucleated RBC Immature Gran % Immature Gran # PT 14.1 SEC SEC (12.0-15.0) INR 1.07 (0.83-1.16) APTT 30.3 SEC SEC (23.0-38.0) Sodium 140 mEq/L mEq/L (135-145) Potassium 4.9 mEq/L mEq/L (3.3-5.0) Chloride 106 mEq/L mEq/L (97-110) Carbon Dioxide 24 mEq/l mEq/l (22-31) Anion Gap 10 mEq/L mEq/L (6-14) BUN 15 mg/dL mg/dL (7-23) Creatinine 1.0 mg/dL mg/dL (0.6-1.0) Estimated GFR 53 Glucose 126 mg/dL H mg/dL (70-100) Calcium 9.5 mg/dL mg/dL (8.5-10.4) POC Troponin I 0.01 ng/mL ng/mL (0.00-0.08) Ethyl Alcohol < 10 mg/dL mg/dL (0-10) 05/02/18 10:00 WBC 6.83 10^3/uL 10^3/uL (3.80-9.50) RBC 3.75 10^6/uL L 10^6/uL (4.18-5.33) Hgb 12.1 g/dL L g/dL (12.6-16.3) Hct 36.6 % L % (38.0-47.0) MCV 97.6 fL fL (81.5-99.8) MCH 32.3 pg pg (27.9-34.1) MCHC 33.1 g/dL g/dL (32.4-36.7) RDW 13.8 % % (11.5-15.2) Plt Count 241 10^3/uL 10^3/uL (150-400) MPV 10.6 fL fL (8.7-11.7) Neut % (Auto) 70.4 % % (39.3-74.2) Lymph % (Auto) 16.5 % % (15.0-45.0) [place] % (Auto) 9.4 % % (4.5-13.0) Eos % (Auto) 3.2 % % (0.6-7.6) Baso % (Auto) 0.4 % % (0.3-1.7) Nucleat RBC Rel Count 0.0 % % (0.0-0.2) Absolute Neuts (auto) 4.80 10^3/uL 10^3/uL (1.70-6.50) Absolute Lymphs (auto) 1.13 10^3/uL 10^3/uL (1.00-3.00) Absolute Monos (auto) 0.64 10^3/uL 10^3/uL (0.30-0.80) Absolute Eos (auto) 0.22 10^3/uL 10^3/uL (0.03-0.40) Absolute Basos (auto) 0.03 10^3/uL 10^3/uL (0.02-0.10) Absolute Nucleated RBC 0.00 10^3/uL 10^3/uL (0-0.01) Immature Gran % 0.1 % % (0.0-1.1) Immature Gran # 0.01 10^3/uL 10^3/uL (0.00-0.10) PT INR APTT Sodium Potassium Chloride Carbon Dioxide Anion Gap BUN Creatinine Estimated GFR Glucose Calcium POC Troponin I Ethyl Alcohol Medications Given: Discontinued Medications Hydromorphone HCl (Dilaudid) 0.25 mg IVP EDNOW ONE Stop: 05/02/18 10:40 Last Admin: 05/02/18 10:43 Dose: 0.25 mg Hydromorphone HCl (Dilaudid) 0.5 mg IVP EDNOW ONE Stop: 05/02/18 11:29 Last Admin: 05/02/18 11:43 Dose: 0.5 mg Sodium Chloride (Ns) 500 mls @ 0 mls/hr IV ONCE ONE; Wide Open PRN Reason: Protocol Stop: 05/02/18 10:07 Last Admin: 05/02/18 10:26 Dose: 500 mls Point of Care Test Results: Chemistry 05/02/18 10:04 POC Troponin I 0.01 ng/mL ng/mL (0.00-0.08) Departure - Departure Disposition: Home, Routine, Self-Care Clinical Impression: Fall from ground level, Nasal contusion, Nasal bone fracture, Strain of wrist, bilateral Condition: Good Instructions: Head Injury (ED), Fall Prevention (ED), Wrist Sprain (ED) Additional Instructions: Read and follow provided instructions. Follow-up with your primary care physician in 1-2 days for re-evaluation. Continue taking your medication as prescribed. Return to the emergency department for worsening pain, lightheadedness, confusion, vomiting, worsening headache or other serious concerns. Referrals: Lulu Henning MD [Primary Care Provider] - As per Instructions
[2018-05-02 10:34] LABS: PLATELET COUNT 241 10^3/uL (150-400)
[2018-05-02 10:39] LABS: INR 1.07 (0.83-1.16); PROTIME(PATIENT) 14.1 SEC (12.0-15.0)
[2018-05-02] MEDS ORDERED: HYDROmorphONE/DILAUDID 2 MG/ML INJ IVP ONE (10:39)
[2018-05-02] MEDS: HYDROmorphONE/DILAUDID 2 MG/ML INJ IVP ONE ×2 (11:40→11:43)
[2018-05-02 13:11] VITALS: BP 110/66
--- NOTE | 2018-05-02 15:04 | CPEKG ---
Test Reason : OPEN Blood Pressure : / mmHG Vent. Rate : 061 BPM Atrial Rate : 062 BPM P-R Int : 145 ms QRS Dur : 089 ms QT Int : 490 ms P-R-T Axes : -53 037 028 degrees QTc Int : 494 ms Sinus or ectopic atrial rhythm Anteroseptal infarct, old Confirmed by Dariel Tellez ([id number] on 05/02/2018 3:03:28 PM Referred By: Confirmed By:Dariel Tellez
== END 2018-05-02 13:10 | disposition home or self-care (01) ==
DX: S02.2XXA Fracture of nasal bones, initial encounter for closed fracture (principal); M25.531 Pain in right wrist; M25.532 Pain in left wrist; M25.521 Pain in right elbow; M25.522 Pain in left elbow; M79.641 Pain in right hand; M79.642 Pain in left hand; E86.9 Volume depletion, unspecified; W01.198A Fall on same level from slipping, tripping and stumbling with subsequent striking against other object, initial encounter; Y93.89 Activity, other specified; Y92.89 Other specified places as the place of occurrence of the external cause; Y99.9 Unspecified external cause status
CPT/HCPCS: 70450; 73080; 73110; 73130; 93005; 96361; 96374; 96376; 99285; J1170; 84484-PO; G0480